=== PATIENT | female | born 1940 | race Caucasian/White ===

== ENCOUNTER 2018-01-28 20:02 | Inpatient (IN) | payer MEDICARE, OTHER ==
[~2018-01-28] VITALS: Ht 165.1 cm; Wt 68.9 kg
--- NOTE | 2018-01-28 20:30 | NUR ---
PATIENT MISSY FROM [facility], ON 1781 HOLD FOR THROWING CHAIRS ON [address]
--- NOTE | 2018-01-28 20:45 | NUR ---
PATIENT SEEN AND EXAMINED BY
[2018-01-28 21:02] LABS: BASOPHILS # (AUTO) 0.1 /CMM (0.0-0.2); BASOPHILS % (AUTO) 1.3 % (0.0-2.0); EOSINOPHILS % (AUTO) 0.8 % (0.0-6.0); HEMATOCRIT 38 % (33-45); HEMOGLOBIN 13.2 g/dL (11.5-14.8); LYMPHOCYTES # (AUTO) 1.2 /CMM (0.8-4.8); LYMPHOCYTES % (AUTO) 14.3 % (20.0-44.0); MEAN CORPUSCULAR HGB CONC 35 g/dl (31.0-36.0); MEAN CORPUSCULAR VOLUME 94 fL (82-100); MONOCYTES # (AUTO) 0.6 /CMM (0.1-1.30); MONOCYTES % (AUTO) 7.5 % (2.0-12.0); NEUTROPHILS # (AUTO) 6.5 /CMM (1.8-8.9); NEUTROPHILS % (AUTO) 76.1 % (43.0-81.0); PLATELET COUNT (AUTO) 221 /CMM (150-450); RDW COEFFICIENT OF VARIATION 11.7 (11.5-15.0); RED BLOOD CELL COUNT(AUTO) 4.04 MIL/uL (4.0-5.2); WHITE BLOOD COUNT (AUTO) 8.5 K/uL (4.3-11.0)
[2018-01-28 21:10] LABS: CALCIUM, SERUM 9.9 mg/dL (8.5-10.1); CARBON DIOXIDE 32 mmol/L (21-32); CHLORIDE 105 mmol/L (98-107); CREATININE 0.8 mg/dL (0.6-1.3); GLUCOSE 109 mg/dL (74-106); POTASSIUM 3.5 mmol/L (3.5-5.1); SODIUM SERUM 141 mmol/L (136-145); UREA NITROGEN, BLOOD 13 mg/dL (7-18)
[2018-01-28 21:11] LABS: ALCOHOL, BLOOD < 3 mg/dL (0-0)
[2018-01-28 21:25] LABS: APPEARANCE,URINE Slightly Cloudy (CLEAR); BILIRUBIN,URINE Negative (NEGATIVE); BLOOD, URINE Trace-lysed Ery/uL (NEGATIVE); COLOR,URINE Yellow (YELLOW); KETONES,URINE 15 (NEGATIVE); LEUKOCYTE ESTERASE ,URINE Small (NEGATIVE); NITRITE, URINE Positive (NEGATIVE); PROTEIN,URINE Negative (NEGATIVE); UGLUCOSE Negative (NEGATIVE); UROBILINOGEN,URINE 0.2 EU/dL (0.2)
[2018-01-28 21:37] LABS: WBC,URINE 21-50 /HPF (0-3)
[2018-01-28 21:38] LABS: BACTERIA,URINE Many /HPF (None Seen); SQUAMOUS EPITHELIAL CELL,UR Few /HPF (None Seen)
--- NOTE | 2018-01-28 22:05 | NUR ---
CALLED GPS, NURSE UNAVAIABLE FOR REPORT. WILL CALL BACK IN 10 MINUTES
--- NOTE | 2018-01-28 22:30 | NUR ---
GPS WASTE DISPOSAL ATTENDANT NOTES, 77 YO FEMALE ADMITTED FROM ER DEPARTMENT IN COMPANY OF RN VIA W/C IN STABLE CONDITION AT THIS TIME, UNDER PSYCH SERVICES OF DR MERCADO AND [facility]ANK FOR MEDICAL, WITH ADMITTING DX OF PSYCHOSIS NOS, ALERT AND ORIENTED X3 ABLE TO VERBALIZED NEEDS AND CONCERNS, BREATHING EVEN AND UNLABORED, NO SOB/ACUTE DISTRESS NOTED, NO BEHAVIORAL ISSUES NOTED AT THIS TIME, NO DISRUPTIVE BEHAVIOR EXHIBIT AT THIA TIME, COOPERATIVE WITH CARE AT THIS TIME PM CARE PROVIDED UPON BODY ASSESSMENT NOTED DISCOLORATION ON LEFT UPPER ARM, AND SMALL SKIN TEAR IN RIGHT LATERAL LEG, ALL NEEDS PROVIDED AND MEDICATION WILL BE ADMINISTRATED ORDERED, WILL CONTINUE TO MONITOR CLOSELY. Addendum: 01/29/18 at 0118 by TAMIR DE JESUS RN UPON ADMISSION PATIENT VITAL SIGNS FOLLOW BP 153/72, 98.8, 17, 89, 97% RA, 010.
[2018-01-28] MEDS ORDERED: MAG HYDROX/AL HYDROX/SIMETH 30 ML UDC PO PRN (23:00)
[2018-01-28] MEDS ORDERED: MAGNESIUM HYDROXIDE 30 ML UDC PO PRN (23:00)
[2018-01-28] MEDS ORDERED: ACETAMINOPHEN 325 MG TABLET PO PRN (23:00)
[2018-01-29] MEDS ORDERED: DIVA250T PO (03:21)
[2018-01-29] MEDS ORDERED: DOCU-141 PO (03:33)
[2018-01-29] MEDS ORDERED: QUET25TA PO (03:33)
[2018-01-29] MEDS ORDERED: ZOLP5TAB2 PO (03:33)
[2018-01-29] MEDS ORDERED: CLON0.5T PO (03:33)
[2018-01-29 07:42] LABS: CREATININE 0.7 mg/dL (0.6-1.3)
[2018-01-29 07:47] LABS: CHOLESTEROL 184 mg/dL (<200); HDL CHOLESTEROL 60 mg/dL (40-60); LDL 118 mg/dL (0-99); TRIGLYCERIDES 71 mg/dL (30-150)
[2018-01-29 08:00] VITALS: BP 137/58
[2018-01-29] MEDS: CEPHALEXIN MONOHYDRATE 500 MG CAPSULE PO SCH ×2 (08:11→20:12)
[2018-01-29] MEDS: QUETIAPINE FUMARATE 25 MG TABLET PO SCH ×2 (15:41→21:30)
[2018-01-29] MEDS: DIVALPROEX SODIUM 125 MG CAP.SPRINK PO SCH ×2 (15:41→17:32)
[2018-01-29] MEDS: SERTRALINE HCL 25 MG TABLET PO SCH (15:41)
--- NOTE | 2018-01-29 15:53 | NUR ---
SINDY called the pt's daughter, Sadie ([phone]), and discussed the pt's discharge plan of returning to [facility].
[2018-01-29 16:11] VITALS: BP 149/64
[2018-01-29] MEDS: busPIRone 5 MG TABLET PO SCH (17:32)
[2018-01-29 20:00] VITALS: BP 154/79
[2018-01-29 20:24] VITALS: BP 154/79
[2018-01-30] MEDS: DOCUSATE SODIUM 100 MG CAPSULE PO SCH (06:23)
[2018-01-30 08:00] VITALS: BP 100/59
[2018-01-30] MEDS: CEPHALEXIN MONOHYDRATE 500 MG CAPSULE PO SCH ×2 (08:59→21:07)
[2018-01-30] MEDS: busPIRone 5 MG TABLET PO SCH ×2 (08:59→21:07)
[2018-01-30] MEDS: QUETIAPINE FUMARATE 25 MG TABLET PO SCH ×3 (08:59→21:07)
[2018-01-30] MEDS: DIVALPROEX SODIUM 125 MG CAP.SPRINK PO SCH ×2 (09:00→12:47)
[2018-01-30] MEDS: LORAZEPAM 0.5 MG TABLET PO PRN (09:00)
[2018-01-30] MEDS: SERTRALINE HCL 25 MG TABLET PO SCH (12:47)
--- NOTE | 2018-01-30 13:55 | NUR ---
SINDY contacted Sabino ([phone]) from [facility] and confirmed that the pt can return upon discharge.
--- NOTE | 2018-01-30 15:09 | NUR ---
Initial Discharge Plan: Pt currently was transferred from a shelter facility called [facility] located at [address] [place] [id number]; ([phone]). Per pt's daughter, Sadie ([phone]), the pt will return to the facility. SW will work with the pt and the MD regarding appropriate discharge planning. SW will form a safe and proper discharge.
[2018-01-30 16:00] VITALS: BP 102/65
[2018-01-30 19:58] VITALS: BP 121/55
[2018-01-31 08:00] VITALS: BP 126/79
[2018-01-31] MEDS: DIVALPROEX SODIUM 125 MG CAP.SPRINK PO SCH ×2 (08:53→21:17)
[2018-01-31] MEDS: DOCUSATE SODIUM 100 MG CAPSULE PO SCH (08:54)
[2018-01-31] MEDS: CEPHALEXIN MONOHYDRATE 500 MG CAPSULE PO SCH ×2 (08:54→21:17)
[2018-01-31] MEDS: QUETIAPINE FUMARATE 25 MG TABLET PO SCH ×2 (08:54→21:17)
[2018-01-31] MEDS: busPIRone 5 MG TABLET PO SCH (08:54)
[2018-01-31] MEDS: SERTRALINE HCL 25 MG TABLET PO SCH (13:09)
[2018-01-31 17:35] VITALS: BP 115/65
[2018-01-31 20:00] VITALS: BP 156/74
[2018-01-31] MEDS: TEMAZEPAM 7.5 MG CAPSULE PO PRN (21:17)
[2018-02-01] MEDS: DOCUSATE SODIUM 100 MG CAPSULE PO SCH (06:19)
[2018-02-01 06:22] LABS: BASOPHILS # (AUTO) 0.1 /CMM (0.0-0.2); EOSINOPHILS % (AUTO) 2.9 % (0.0-6.0); HEMATOCRIT 36 % (33-45); HEMOGLOBIN 11.9 g/dL (11.5-14.8); LYMPHOCYTES # (AUTO) 1.9 /CMM (0.8-4.8); LYMPHOCYTES % (AUTO) 33.5 % (20.0-44.0); MEAN CORPUSCULAR HGB CONC 33 g/dl (31.0-36.0); MEAN CORPUSCULAR VOLUME 98 fL (82-100); MONOCYTES # (AUTO) 0.9 /CMM (0.1-1.30); MONOCYTES % (AUTO) 16.7 % (2.0-12.0); NEUTROPHILS # (AUTO) 2.6 /CMM (1.8-8.9); NEUTROPHILS % (AUTO) 45.9 % (43.0-81.0); PLATELET COUNT (AUTO) 266 /CMM (150-450); RDW COEFFICIENT OF VARIATION 12.8 (11.5-15.0); RED BLOOD CELL COUNT(AUTO) 3.67 MIL/uL (4.0-5.2); WHITE BLOOD COUNT (AUTO) 5.7 K/uL (4.3-11.0)
[2018-02-01 06:48] LABS: ALANINE AMINOTRANSFERASE 25 U/L (12-78); ALBUMIN 2.8 g/dL (3.4-5.0); ALKALINE PHOSPHATASE 58 U/L (46-116); ASPARTATE AMINOTRANSFERASE 22 U/L (15-37); BILIRUBIN,TOTAL 0.2 mg/dL (0.2-1.0); CALCIUM, SERUM 9.5 mg/dL (8.5-10.1); CARBON DIOXIDE 30 mmol/L (21-32); CHLORIDE 105 mmol/L (98-107); CREATININE 0.7 mg/dL (0.6-1.3); GLUCOSE 87 mg/dL (74-106); MAGNESIUM 2.2 mg/dL (1.8-2.4); POTASSIUM 3.3 mmol/L (3.5-5.1); SODIUM SERUM 143 mmol/L (136-145); TOTAL PROTEIN, SERUM 6.2 g/dL (6.4-8.2); UREA NITROGEN, BLOOD 9 mg/dL (7-18)
[2018-02-01 06:51] LABS: VALPROIC ACID 24 ug/mL (50-100)
[2018-02-01 08:00] VITALS: BP 117/65
[2018-02-01] MEDS ORDERED: SERTRALINE HCL 25 MG TABLET PO SCH (08:00)
[2018-02-01 08:03] LABS: BAND % (MANUAL) 2 % (0.0-5.0); EOSINOPHILS % (MANUAL) 4 % (0-4); LYMPHOCYTES % (MANUAL) 27 % (16-48); MONOCYTES % (MANUAL) 16 % (0-11.0); NEUTROPHILS % (MANUAL) 51 (42-76)
[2018-02-01] MEDS: DIVALPROEX SODIUM 125 MG CAP.SPRINK PO SCH ×2 (08:30→21:32)
[2018-02-01] MEDS: QUETIAPINE FUMARATE 25 MG TABLET PO SCH ×2 (08:31→21:32)
[2018-02-01] MEDS: CEPHALEXIN MONOHYDRATE 500 MG CAPSULE PO SCH ×2 (08:31→21:32)
[2018-02-01] MEDS: MEMANTINE HCL 5 MG TABLET PO SCH ×2 (08:33→21:32)
--- NOTE | 2018-02-01 08:38 | NUR ---
SW called the pt's daughter, Sadie ([phone]), and discussed the medication changes as well as the pt's discharge plan of returning to [facility]. Pt's behavior was discussed such as how she is constantly occupied with her and his whereabouts. SINDY also informed the pt's daughter that there is no current discharge date right now but that she will try to provide her with a tentative date today after speaking to Dr. Rodriguez.
[2018-02-01] MEDS ORDERED: busPIRone 5 MG TABLET PO SCH ×2 (09:00→17:00)
[2018-02-01] MEDS ORDERED: POTASSIUM CHLORIDE 20 MEQ TAB.PRT.SR PO SCH (11:30)
[2018-02-01] MEDS ORDERED: OLANZAPINE 10 MG VIAL IM STA (12:55)
[2018-02-01] MEDS ORDERED: QUETIAPINE FUMARATE 25 MG TABLET PO PRN (13:00)
--- NOTE | 2018-02-01 13:00 | NUR ---
rn-co: patient is non redirectable, focus on her . Yelled and screamed in the hallway and at the psychiatrist. She threw magazine in the front of the staff. Dr Rodriguez seen and examined patient and ordered Zyprexa 3 mg IM STAT.Noted nad carried out.
--- NOTE | 2018-02-01 13:50 | NUR ---
RN-CO: Patient is awake, in the dining room,denied discomforts. Respiration even and unlabored.
[2018-02-01 16:00] VITALS: BP 136/76
[2018-02-01 20:00] VITALS: BP 137/92
[2018-02-02] MEDS: DOCUSATE SODIUM 100 MG CAPSULE PO SCH (06:50)
[2018-02-02 08:00] VITALS: BP 104/55
[2018-02-02] MEDS ORDERED: SERTRALINE HCL 25 MG TABLET PO SCH (08:00)
[2018-02-02] MEDS: MEMANTINE HCL 5 MG TABLET PO SCH ×2 (08:18→21:05)
[2018-02-02] MEDS: CEPHALEXIN MONOHYDRATE 500 MG CAPSULE PO SCH ×2 (08:18→21:05)
[2018-02-02] MEDS: DIVALPROEX SODIUM 125 MG CAP.SPRINK PO SCH ×2 (08:18→21:06)
[2018-02-02] MEDS: QUETIAPINE FUMARATE 25 MG TABLET PO SCH ×2 (08:19→21:06)
[2018-02-02 16:00] VITALS: BP 132/75
[2018-02-02] MEDS: LORAZEPAM 0.5 MG TABLET PO PRN (19:42)
[2018-02-02 20:00] VITALS: BP 124/54
[2018-02-02 22:30] VITALS: BP 129/63
[2018-02-03] MEDS: DOCUSATE SODIUM 100 MG CAPSULE PO SCH (06:42)
[2018-02-03 08:00] VITALS: BP 138/75
[2018-02-03] MEDS: CEPHALEXIN MONOHYDRATE 500 MG CAPSULE PO SCH (08:26)
[2018-02-03] MEDS: MEMANTINE HCL 5 MG TABLET PO SCH ×2 (08:26→21:32)
[2018-02-03] MEDS: DIVALPROEX SODIUM 125 MG CAP.SPRINK PO SCH ×2 (08:26→21:31)
[2018-02-03] MEDS: QUETIAPINE FUMARATE 25 MG TABLET PO SCH ×2 (08:26→21:32)
[2018-02-03 08:52] VITALS: BP 130/75
[2018-02-03] MEDS ORDERED: NITROFURANTOIN/NITROFURAN MAC 100 MG CAPSULE PO SCH (11:00)
[2018-02-03 16:00] VITALS: BP 124/71
[2018-02-03 20:00] VITALS: BP 154/68
[2018-02-03] MEDS: NITROFURANTOIN/NITROFURAN MAC 100 MG CAPSULE PO SCH (21:32)
[2018-02-04] MEDS: DOCUSATE SODIUM 100 MG CAPSULE PO SCH (06:01)
[2018-02-04 08:00] VITALS: BP 123/86
[2018-02-04] MEDS: NITROFURANTOIN/NITROFURAN MAC 100 MG CAPSULE PO SCH ×2 (08:57→20:58)
[2018-02-04] MEDS: MEMANTINE HCL 5 MG TABLET PO SCH ×2 (08:57→20:58)
[2018-02-04] MEDS: QUETIAPINE FUMARATE 25 MG TABLET PO SCH ×2 (08:57→21:03)
[2018-02-04] MEDS: DIVALPROEX SODIUM 125 MG CAP.SPRINK PO SCH ×2 (08:57→20:57)
--- NOTE | 2018-02-04 10:34 | NUR ---
SW called the pt's daughter, Sadie ([phone]), and discussed that the daughter is attempting to place the pt at a different facility for memory care and asked the SW to make a call to the facility to fax over some paperwork. She also asked if it was possible to push the discharge date to avoid placing the pt two times but the SW stated that she would have to discuss the pt's needs with the psychiatrist.
--- NOTE | 2018-02-04 12:20 | NUR ---
SINDY met with Carey ([phone]) from [facility] and the pt together. The pt's condition and behaviors at the hospital were discussed. Carey stated that she would talk to the directors at the facility about accepting the pt.
--- NOTE | 2018-02-04 12:27 | NUR ---
SW called Dalila ([phone]) from [facility] and discussed the pt's H&P and medications being faxed over to: [phone]. Dalila also stated that the SW will need to fax over a completed 602 form for the pt.
--- NOTE | 2018-02-04 12:29 | NUR ---
SINDY faxed the H&P and the medications to Dalila ([phone]) from [facility] to the fax number: [phone].
[2018-02-04 16:00] VITALS: BP 137/85
--- NOTE | 2018-02-04 16:20 | NUR ---
GPS/RN PATIENT IS ANXIOUS, AGITATED AND RESTLESS. REPEATEDLY COMING INTO NURSES STATION, NOT ABLE TO TAKE FOLLOW DIRECTIONS AT THIS TIME. ADMINISTERED SEROQUEL 12.5 MG, WILL CONTINUE TO MONITOR.
[2018-02-04 20:14] VITALS: BP 128/99
[2018-02-05] MEDS: DOCUSATE SODIUM 100 MG CAPSULE PO SCH (06:47)
[2018-02-05 08:21] VITALS: BP 110/59
--- NOTE | 2018-02-05 08:36 | NUR ---
SW called the pt's daughter, Sadie ([phone]), and it was discussed that the facility has not yet made a decision on whether or not the pt will be accepted and stated that the daughter will know sometime in the morning. She asked the SW if there are other facilities that we can have as an option and the SW stated that there is.
[2018-02-05] MEDS: DIVALPROEX SODIUM 125 MG CAP.SPRINK PO SCH ×2 (08:47→20:44)
[2018-02-05] MEDS: NITROFURANTOIN/NITROFURAN MAC 100 MG CAPSULE PO SCH ×2 (08:47→20:44)
[2018-02-05] MEDS: QUETIAPINE FUMARATE 25 MG TABLET PO SCH ×3 (08:47→20:45)
[2018-02-05] MEDS: MEMANTINE HCL 5 MG TABLET PO SCH ×2 (08:48→20:44)
[2018-02-05] MEDS: DIVALPROEX SODIUM 250 MG TABLET.DR PO SCH (13:49)
--- NOTE | 2018-02-05 14:34 | NUR ---
SINDY called the pt's daughter, Sadie ([phone]), and asked for an update regarding the facility. She stated that she will be calling them right after we finish speaking.
[2018-02-05 16:00] VITALS: BP 151/72
[2018-02-05 20:44] VITALS: BP 126/68
[2018-02-05] MEDS: TEMAZEPAM 7.5 MG CAPSULE PO PRN (20:45)
[2018-02-06] MEDS: DOCUSATE SODIUM 100 MG CAPSULE PO SCH (06:28)
[2018-02-06 08:00] VITALS: BP 122/80
[2018-02-06] MEDS: QUETIAPINE FUMARATE 25 MG TABLET PO SCH ×3 (09:17→21:22)
[2018-02-06] MEDS: DIVALPROEX SODIUM 125 MG CAP.SPRINK PO SCH ×2 (09:17→21:22)
[2018-02-06] MEDS: MEMANTINE HCL 5 MG TABLET PO SCH ×2 (09:17→21:22)
[2018-02-06] MEDS: NITROFURANTOIN/NITROFURAN MAC 100 MG CAPSULE PO SCH ×2 (09:19→21:22)
[2018-02-06 09:56] LABS: BASOPHILS % (AUTO) 0.7 % (0.0-2.0); EOSINOPHILS % (AUTO) 2.3 % (0.0-6.0); HEMATOCRIT 39 % (33-45); HEMOGLOBIN 12.8 g/dL (11.5-14.8); LYMPHOCYTES # (AUTO) 1.5 /CMM (0.8-4.8); LYMPHOCYTES % (AUTO) 23.7 % (20.0-44.0); MEAN CORPUSCULAR HGB CONC 33 g/dl (31.0-36.0); MEAN CORPUSCULAR VOLUME 98 fL (82-100); MONOCYTES # (AUTO) 0.6 /CMM (0.1-1.30); MONOCYTES % (AUTO) 10.3 % (2.0-12.0); NEUTROPHILS # (AUTO) 3.9 /CMM (1.8-8.9); PLATELET COUNT (AUTO) 400 /CMM (150-450); RED BLOOD CELL COUNT(AUTO) 4.01 MIL/uL (4.0-5.2); WHITE BLOOD COUNT (AUTO) 6.2 K/uL (4.3-11.0)
[2018-02-06 10:06] LABS: VALPROIC ACID 51 ug/mL (50-100)
[2018-02-06 10:08] LABS: ALANINE AMINOTRANSFERASE 20 U/L (12-78); ALBUMIN 3.1 g/dL (3.4-5.0); ALKALINE PHOSPHATASE 65 U/L (46-116); ASPARTATE AMINOTRANSFERASE 16 U/L (15-37); BILIRUBIN,TOTAL 0.3 mg/dL (0.2-1.0); CALCIUM, SERUM 9.7 mg/dL (8.5-10.1); CARBON DIOXIDE 32 mmol/L (21-32); CHLORIDE 104 mmol/L (98-107); CREATININE 0.8 mg/dL (0.6-1.3); GLUCOSE 84 mg/dL (74-106); SODIUM SERUM 141 mmol/L (136-145); TOTAL PROTEIN, SERUM 6.9 g/dL (6.4-8.2); UREA NITROGEN, BLOOD 10 mg/dL (7-18)
--- NOTE | 2018-02-06 12:02 | NUR ---
SW called the pt's daughter, Sadie ([phone]), and discussed that the pt will be assessed by [facility].
--- NOTE | 2018-02-06 12:17 | NUR ---
SINDY met with Jaquelin ([phone]) from [facility] along with Juani. SINDY introduced them to the pt and provided them with an update regarding the pt's current behavior.
--- NOTE | 2018-02-06 12:19 | NUR ---
SINDY faxed a 602 Physicians Report to Jaquelin ([phone]) from [facility] to the fax number: [phone].
[2018-02-06] MEDS: DIVALPROEX SODIUM 250 MG TABLET.DR PO SCH (13:16)
--- NOTE | 2018-02-06 15:13 | NUR ---
SINDY called Jaquelin ([phone]) from [facility] and discussed the pt's discharge plan.
[2018-02-06 16:09] VITALS: BP 145/70
[2018-02-06 20:26] VITALS: BP 103/74
[2018-02-07] MEDS: DOCUSATE SODIUM 100 MG CAPSULE PO SCH (06:00)
--- NOTE | 2018-02-07 07:00 | NUR ---
PT REFUSED DOCUSATE SODIUM, RISK AND BENEFITS EXPLAINED, PT STILL REFUSED X 3. WILL ENDORSE ACCORDINGLY TO NEXT SHIFT FOR LORE
[2018-02-07 08:00] VITALS: BP 129/50
[2018-02-07 08:19] VITALS: BP 129/50
[2018-02-07] MEDS: QUETIAPINE FUMARATE 25 MG TABLET PO SCH ×2 (08:27→12:18)
[2018-02-07] MEDS: NITROFURANTOIN/NITROFURAN MAC 100 MG CAPSULE PO SCH (08:27)
[2018-02-07] MEDS: DIVALPROEX SODIUM 125 MG CAP.SPRINK PO SCH (08:28)
[2018-02-07] MEDS: MEMANTINE HCL 5 MG TABLET PO SCH (08:28)
--- NOTE | 2018-02-07 09:31 | NUR ---
DR. MERCADO GAVE AN ORDER TO D/C HOLD AND D/C TO [facility] AND TO FOLLO UP WITH PSYCH AND MEDICAL DOCTORS.
--- NOTE | 2018-02-07 10:32 | NUR ---
SINDY called the pt's daughter, Sadie ([phone]), and informed her that the pt will be discharging today at around 2pm.
--- NOTE | 2018-02-07 11:53 | NUR ---
Jaquelin ([phone]) from [facility] called the SW and stated that she needs the pt's chest x-ray.
--- NOTE | 2018-02-07 11:53 | NUR ---
SINDY faxed a chest x-ray to Jaquelin ([phone]) from [facility] to the fax number: [phone].
[2018-02-07] MEDS: DIVALPROEX SODIUM 250 MG TABLET.DR PO SCH (12:18)
--- NOTE | 2018-02-07 14:05 | NUR ---
MAGI BURLESON MADE AWARE OF THE DISCHARGE AND PROVIDE PRESCRIPTIONS.
--- NOTE | 2018-02-07 14:20 | NUR ---
GPS PANTOGRAPHER NOTE PT DISCHARGED TO [facility] IN STABLE CONDITION. PT P/U BY STAFF VIA PERSONAL VEHICLE. PT IS AMBULATORY. PT IS A/O X2, AFEBRILE. RESPIRATIONS ARE EVEN AND UNLABORED, NOT IN ANY ACUTE DISTRESS NOTED. PT DENIES ANY PAIN, SOB, N/V. NO IV ACCESS NOTED. ID BANDS REMOVED. PT DENIES ANY SI/HI. PT STATES SHE JUST WANTS TO "GO HOME." ABDOMEN IS SOFT AND NONDISTENDED. BOWEL SOUNDS ARE PRESENT IN ALL 4 QUADRANTS. DENIES ANY BLADDER DISCOMFORT AND IS CONTINENT. EXPLAINED DISCHARGE PAPERWORK TO PT WITH VERBAL AND WRITTEN AGREEMENT. ALL BELONGINGS LEFT WITH PT. PT LEFT IN STABLE CONDITION.
--- NOTE | 2018-02-07 15:55 | NUR ---
Discharge Note: Pt was discharged to [facility] [place] [address] [place] [address]; . Pts daughter, Sadie ([phone]), was aware of the placement and approved. Pt was picked up by a milk delivery driver from the facility around 2pm. Upon discharge, the pt appeared to be in a euthymic mood but presented with an anxious affect. Pt needed constant redirection about where she was going and was preoccupied with her . Pt denied both suicidal and homicidal ideation as well as auditory and visual hallucinations. Pt will be under the care of psychiatrist, Dr. Sally Perez, located at [address] [place] [address]; and jelly filter tender, Dr. Yousif Ruiz, located at [address], [place] [address]; .
== END 2018-02-07 14:20 | DRG 885 ==
LOC: ER 20:05 → EDBD 21:35 → GPS 21:35
PROVIDERS: ADMIT Psychiatry & Neurology Psychosomatic Medicine; ATTEND Internal Medicine
DX: F25.0 Schizoaffective disorder, bipolar type (principal); F01.50 Vascular dementia, unspecified severity, without behavioral disturbance, psychotic disturbance, mood disturbance, and anxiety; N39.0 Urinary tract infection, site not specified; F29 Unspecified psychosis not due to a substance or known physiological condition; E78.5 Hyperlipidemia, unspecified; K21.9 Gastro-esophageal reflux disease without esophagitis; Z73.6 Limitation of activities due to disability; B96.20 Unspecified Escherichia coli [E. coli] as the cause of diseases classified elsewhere; E88.09 Other disorders of plasma-protein metabolism, not elsewhere classified
CPT/HCPCS: 36415; 71045-TC; 80048-TC; 80053-TC; 80061-TC; 80164-TC; 80305; 81000-TC; 82565-TC; 83735-TC; 85025-TC; 87081-TC; 87086-TC; 87186-TC; A4606; G0480; J3490; Z7610